=== PATIENT | male | born 1985 | race African-American/Black ===

== ENCOUNTER 2021-03-24 20:55 | Emergency (ER) | payer SELFPAY ==
[~2021-03-24] VITALS: Ht 167.6 cm; Wt 59.1 kg
[2021-03-24 20:56] VITALS: TEMP 97.9
[2021-03-24 21:51] LABS: HEMATOCRIT 44.6 % (42.0-52.0); HEMOGLOBIN 15.1 g/dl (13.5-18.0); MEAN CELL VOLUME 92 fl (80.0-100.0); MEAN CORPUSCULAR HEMOGLOBIN 31 pg (27-31); MEAN CORPUSCULAR HGB CONC 34 g/dl (33.0-37.0); MEAN PLATELET VOLUME 10.6 fl (7.4-10.4); PLATELET COUNT 263 K/mm3 (130-400); RED BLOOD COUNT 4.86 M/mm3 (4.20-5.60)
[2021-03-24 22:11] LABS: ALANINE AMINOTRANSFERASE 39 U/L (0-55); ALBUMIN 4.3 gm/dL (3.5-5.0); ALCOHOL(ethanol),MEDICAL 100 mg/dL (0-10); ALKALINE PHOSPHATASE 82 U/L (40-150); ANION GAP 16 mmol/L (7-16); AST,SGOT 52 U/L (5-34); BILIRUBIN,TOTAL 1.1 mg/dL (0.2-1.2); BLOOD UREA NITROGEN 10 mg/dL (9-21); CALCIUM 9.1 mg/dL (8.4-10.2); CARBON DIOXIDE 22 mmol/L (22-29); CHLORIDE 107 mmol/L (98-107); CREATININE, serum 1.17 mg/dL (0.72-1.25); GLUCOSE 70 mg/dL (70-99); POTASSIUM 4.2 mmol/L (3.5-4.5); SODIUM 145 mmol/L (136-145); TOTAL PROTEIN 7.8 gm/dL (6.2-8.1)
[2021-03-24 22:12] LABS: BAND 3 % (0-10); LYMPHOCYTE 12 % (20.0-51.0); MYELOCYTE 2 % (0-0); NEUTROPHILS 81 % (42.0-75.2); PLATELET ESTIMATE NORMAL (NORMAL)
[2021-03-24 22:16] LABS: ACETAMINOPHEN < 1.0 ug/mL (10-30)
[2021-03-24 22:18] LABS: TROPONIN-I 0.011 ng/mL (0.00-0.033)
[2021-03-24 22:57] VITALS: BP 112/91; PULSE 71
== END 2021-03-24 22:57 | disposition home or self-care (01) ==
LOC: COL.ER 20:55
PROVIDERS: Emergency Medicine
DX: T40.602A Poisoning by unspecified narcotics, intentional self-harm, initial encounter (principal); F17.210 Nicotine dependence, cigarettes, uncomplicated

== ENCOUNTER → 2022-02-16 | Outpatient (CLI) | payer BC | LOC: COL.RAD 09:51 | DX: M54.50 Low back pain, unspecified (principal); G89.29 Other chronic pain ==

== ENCOUNTER 2023-02-06 11:42 | Outpatient (RCR) | payer BC ==
[~2023-02-06 11:42] MED LIST: ASPIRIN 81M81 MG/TA2 PO; CLEOCIN HCL300 MG PO; DUO-KAPS1 CAP PO; ENTRESTO 24 MG1 EACH PO; FOLIC ACID 11 MG/TA1 PO; JARDIANCE10 PO; LIPITOR 40MG TA40 MG PO; NATURE'S BLEND100 M2 PO; PEPCID 20MG TAB20 MG PO; PLAVIX 75MG TAB75 MG PO; TOPROL XL 50MG50 MG PO
== END 2023-02-07 | disposition home or self-care (01) ==
LOC: COL.CR
DX: I25.2 Old myocardial infarction (principal)

== ENCOUNTER 2023-03-08 13:03 | Outpatient (RCR) | payer BC | END 2023-03-09 | disposition home or self-care (01) | LOC: COL.CR | DX: I25.2 Old myocardial infarction (principal) ==